=== PATIENT | female | born 1945 | race Caucasian/White ===

== ENCOUNTER 2017-05-25 09:12 | Day surgery (SDC) | payer MEDICARE, OTHER ==
[~2017-05-25] VITALS: Ht 162.6 cm; Wt 56.7 kg
[~2017-05-25 09:12] MED LIST: CALCA400CH; CHOL10002; LOSA50; POTASSIUM GLUC500 MG
[2017-05-25] MEDS ORDERED: CRANBERRY250 MG (09:31)
== END 2017-05-25 12:44 | disposition home or self-care (01) ==
LOC: ORSCSDS 09:12
PROVIDERS: Podiatrist Foot & Ankle Surgery
PROC: 0SQM0ZZ Repair Right Metatarsal-Phalangeal Joint, Open Approach (ICD-10-PCS; principal; 2017-05-25 10:30)
DX: M77.9 Enthesopathy, unspecified (principal); I10 Essential (primary) hypertension; Z79.899 Other long term (current) drug therapy
CPT/HCPCS: J0690; J2250; J2405; J3010; J7120

== ENCOUNTER → 2021-06-30 | Outpatient (CLI) | payer MEDICARE, OTHER ==
[~2021-06-30] MED LIST changes: +CRANBERRY250 MG
== END | disposition home or self-care (01) ==
LOC: LAB SHORT 10:58
DX: C44.311 Basal cell carcinoma of skin of nose (principal)
CPT/HCPCS: 88305